=== PATIENT | female | born 1985 | race Caucasian/White ===

== ENCOUNTER 2024-06-22 10:42 | Outpatient (CLI) | payer OTHER, SELFPAY | END 2024-06-22 10:43 | disposition home or self-care (01) | LOC: NFLDREF 06-27 02:50 | PROVIDERS: Visit Provider Nurse Practitioner Family | DX: I10 Essential (primary) hypertension (principal); Z13.220 Encounter for screening for lipoid disorders | CPT/HCPCS: 80053; 80061 ==

== ENCOUNTER 2024-12-05 00:42 | Emergency (ER) | payer OTHER, SELFPAY ==
--- OUTSIDE RECORDS SUMMARY | 2024-12-05 00:46 | XMS_ITS | Clinical Summary ---
Author Organization [facility] Address [address] [place] [address] Care Team Providers Care Supervisor [employer] Name Role Phone Zeina Saldivar MD Primary Care Provider [phone] Allergies No known active allergies Medications No known medications Active Problems No known active problems Resolved Problems Problem Noted Date Diagnosed Date Resolved Date Threatened , antepartum 06/22/2012 01/25/2019 Supervision of other normal 05/24/2012 01/25/2019 Overview (06/22/2012): Previous - planning repeat as of 04/2012 Pediatrics Janna Proteinuria on initial Urinalysis Flu Shot: Decline Chorioamnionitis 09/26/2010 05/24/2012 Malpresentation of fetus 09/26/2010 Non-reassuring heart t ones complicating , antepartum 09/26/2010 05/24/2012 section 09/26/2010 05/24/2012 care and examinat ion of lactating mother 09/26/2010 05/24/2012 Carrier of group B Streptococcus 08/30/2010 05/24/2012 Supervision of normal first 04/02/2010 05/24/2012 BV (bacterial vaginosis) 04/02/2010 CHONDROMALACIA, PATELLA 09/02/200004/26 Immunizations Immunization Administration Dates Next Due Tdap 01/26/2019 Family History Medical History Relation Name Comments No Known Problems Brother Allergies Father Arthritis Father Asthma Father Thyroid Disease Maternal Grandmother Hypertension Mother Arthritis Paternal Grandmother Cancer Paternal Grandmother Diabetes Paternal Grandmother Rheum arthritis Sister Relation Name Status Comments Brother Alive Father ra. 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 Start Date Job End Date [employer] 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 Not on file Not on file Not on file Obstetrics History Para Term AB IAB SAB Ectopic Multiple Livin g Live Births 2 1 1 0 1 0 1 0 0 1 1 Date Outcome GA Total Labor Labor/2nd/3rd Weight Sex Type Anes PTL Nicole A1 A5 Name Clin 2010 Term 40w 1d 22h 00m/ 3.32 kg (7 lb 5 oz) M C-Sect ion Epidur al N Livin g Tawanda Ally i/Fis her Delivery Location:[facility] Comments:got t 4 cm 2 SAB SPONTA NEOUS Last Filed Vital Signs Vital Sign Reading Time Taken Comments Blood Pressure 128/88 01/26/2019 8:59 AM CDT Pulse 78 01/26/2019 8:59 AM CDT Temperature 37 C (98.6 F) 11/06/2010 11:58 AM CDT Respiratory Rate 18 11/06/2010 11:58 AM CDT Oxygen Saturation 100% 09/29/2010 7:51 AM CDT Inhaled Oxygen Concentration - - Weight 100.7 kg (222 lb) 01/26/2019 8:59 AM CDT Height 169 cm (5' 6.54) 01/26/2019 8:59 AM CDT Body Mass Index 35.26 01/26/2019 8:59 AM CDT Plan of Treatment Health Maintenance Due Date Last Done Comments Hepatitis C screening for ag e 18-79 2004 Hepatitis B series for 19+ ( 1 of 3 - 19+ 3-dose series) 2005 BMI (ht and wt on same day) for age 18+ 01/27/2020 01/26/2019 Depression screening for age 12+ 01/27/2020 01/26/2019 COVID-19 vaccine series (1 - 2024-25 season) 2024 Pap test for age 21-65 01/27/2024 9, 01/26/2019, 04/02/2010 Influenza Vaccine (#1) 2025 Tetanus booster 01/26/2029 01/26/2019 HIV for age 15-65 Completed 05/24/2012, 04/02/2010 Pneumococcal series for age 6-49 Aged Out No longer eligible b ased on patient's age to complete this topic Procedures Procedure Name Priority Date/Time Associated Diagnosis Comments DIRECTOR CORPORATE SALES THIN PREP PAP SCREEN IMAGED Routine 01/26/2019 9:41 AM CDT Pap smear for cervical cancer screening ANTI HIV 1/2 Routine 05/24/2012 11:32 AM PROCESS CONTROL TECH Supervision of other normal (HC) from Last 3 Months or Most Recently Relevant to Health Maintenance Results * DIRECTOR CORPORATE SALES THIN PREP PAP SCREEN IMAGED (01/26/2019 9:41 AM CDT) Case Report Gynecologic Cytology Report Case: [id number] Authorizing Provider: Araceli Herrera MD Collected: 01/26/2019 0941 Ordering Location: [facility] Received: 01/26/2019 0941 Clinic First Screen: Felicia Treviño Specimen: DIRECTOR CORPORATE SALES ThinPrep Vial Screening, Cervical 02/03/2019 8:57 AM CDT [email or web address] ENTRAL LABORATORY INTERPRETATION/ RESULT NEGATIVE FOR INTRAEPITHELIAL LESION OR MALIGNANCY (NIL) (none) 02/03/2019 8:57 AM CDT [facility] at 0857 CDT ORGANISM(S) Shift in carmen suggestive of bacterial vaginosis 02/03/2019 8:57 AM CDT [employer] [facility] ENTRAL LABORATORY SPECIMEN ADEQUACY Satisfactory for evaluation Endocervical component present 02/03/2019 8:57 AM CDT [employer] HPV REQUEST HPV and PAP 02/03/2019 8:57 AM CDT [employer] Date of LMP Hormonally Suppressed 02/03/2019 8:57 AM CDT [employer] [facility] Last Pap Date 201202/03/2019 8:57 AM CDT [facility] Last Pap Result NIL 8:57 AM CDT [facility] Abnormal Pap or [place] Bx in last 5 years No 02/03/2019 8:57 AM CDT [facility] Menstrual Status Hormonally Suppressed 02/03/2019 8:57 AM CDT [facility] [place] Bx Done Today No 02/03/2019 8:57 AM CDT [facility] Additional Information None given 02/03/2019 8:57 AM CDT [facility] Automated Review Successful 02/03/2019 8:57 AM CDT [facility] Comment:Specimen processed s uccessfully by automated blind hooker device, ThinPrep Imaging System, [employer] ANCILLARY TESTING DIRECTOR CORPORATE SALES HPV Ordered, Please see separate report 02/03/2019 8:57 AM CDT [facility] Note The pap test is a screening technique, not a diagnostic procedure. It is used primarily to screen for squamous cancers and precursor lesions. Published studies have shown that it is subject to both false negative and false positive results. The pap test should not be used as the sole means to diagnose or exclude pre-malignant and malignant lesions. Cytology is screened and interpreted at [facility] - [address], [place] [address] and [facility] - [address]; [place] [address] and [facility] - [address]; [place] [address] and [facility] [address]; [place] [address] 02/03/2019 8:57 AM CDT [facility] Other (Cervical) Non-Blood / Unknown 01/26/2019 9:41 AM CDT 01/26/2019 9:41 AM CDT us Araceli Herrera MD PATHOLOGY/CYTOLOGY Yovana berrios Result [facility] [address] [place] [address], * ANTI HIV 1/2 (05/24/2012 11:32 AM PROCESS CONTROL TECH) ANTI HIV 1/2 Non-reacti ve [facility] Blood specimen (specimen) BLOOD SPECIMEN / Unknown 05/24/2012 11:32 AM PROCESS CONTROL TECH 05/24/2012 11:22 AM PROCESS CONTROL TECH us Zeina Saldivar MD SEND OUTS Final Resu lt [facility] [place]NAL ZIP [address] [place] [address] from Last 3 Months or Most Recently Relevant to Health Maintenance Advance Directives * Full Code (Latest Code Status on File) Date Activated Date Inactivated Comments 09/26/2010 11:31 PM 09/29/2010 5:12 PM * Full Code Date Activated Date Inactivated Comments 09/26/2010 10:19 PM 09/26/2010 11:31 PM * Full Code Date Activated Date Inactivated Comments 09/26/2010 1:07 AM 09/26/2010 10:19 PM * Full Code Date Activated Date Inactivated Comments 09/26/2010 12:36 AM 09/26/2010 1:07 AM * Full Code Date Activated Date Inactivated Comments 09/03/2010 11:47 AM 09/03/2010 5:33 PM Care Teams 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
--- OUTSIDE RECORDS SUMMARY | 2024-12-05 00:46 | XMS_ITS | Clinical Summary ---
Author Organization [facility] Address [address] [place] [address] Care Team Providers Care Freelance Court Reporter Name Role Phone Found, No Pcp MD Primary Care Provider Unavailab le Source Comments You are receiving this document as you are listed as the primary care provider,follow-up provider, or the patient has been referred to you for consultation.This is in compliance with the Medicare andMedicaid EHR Incentive Program,which states Providers who transition their patient to another setting of careor provider of care or refers their patient to another provider of care shouldprovide summary care record for each transition of care or referral. [facility] [place] Medications No known medications Social History Tobacco Use Types Packs/Day Years Used Date Smoking Tobacco: Never Smokeless Tobacco: Never Comments No Sex and Gender Information Value Date Recorded Sex Assigned at Not on file Legal Sex Female 8:56 AM OVERHEAD DOOR TECHNICIAN Gender Identity Not on file Sexual Orientation Not on file Last Filed Vital Signs Vital Sign Reading Time Taken Comments Blood Pressure 148/108 07/12/2018 9:23 AM OVERHEAD DOOR TECHNICIAN Pulse 70 07/12/2018 9:23 AM OVERHEAD DOOR TECHNICIAN Temperature 36.8 C (98.2 F) 07/12/2018 9:12 AM OVERHEAD DOOR TECHNICIAN Respiratory Rate - - Oxygen Saturation 99% 07/12/2018 9:12 AM OVERHEAD DOOR TECHNICIAN Inhaled Oxygen Concentration - - Weight 95.7 kg (211 lb) 07/12/2018 9:12 AM OVERHEAD DOOR TECHNICIAN Height - - Body Mass Index - - Plan of Treatment Health Maintenance Due Date Last Done Comments Cervical Cancer Screening Due 1986 Hep C Screening (Preventive Services) 1986 HIV Screening (Preventive Services) 2002 Adult Preventive Visit 2004 DTaP/Tdap/Td Vaccine (1 - Tdap) 2005 HepB Vaccine (1) 2005 COVID-19 Vaccine (1 - 2023-2 5 season) 2024 Influenza Vaccine (#1) 2025 Zoster/Shingles Vaccine (1 of 2) 2036 HPV Vaccine Aged Out No longer eligi ble based on patient's age to complete this topic HepA Vaccine Aged Out No longer eligi ble based on patient's age to complete this topic Hib Vaccine Aged Out No longer eligi ble based on patient's age to complete this topic IPV (Polio) Vaccine Aged Out No longe r eligible based on patient's age to complete this topic MCV4 Vaccine Aged Out No longer eligi ble based on patient's age to complete this topic Meningococcal B Vaccine Aged Out No l onger eligible based on patient's age to complete this topic Pneumococcal Vaccine Aged Out No long er eligible based on patient's age to complete this topic Insurance [employer] Care Teams Freelance Court Reporter Relationship Specialty Start Date End Date Found, No PcpMD [address] [facility] [place] [address] PCP - General 07/12/18
[2024-12-05 00:48] VITALS: BP 227/117; PULSE 115; RESP 20; TEMP 36.7; O2SAT 94; BMI 35.2
[2024-12-05 00:56] VITALS: BP 198/120; PULSE 88
--- NOTE | 2024-12-05 01:05 | CRLHL7_ITS ---
For Patients: As a result of the Cures Act, medical imaging exams and procedure reports are released immediately into your electronic medical record. You may view this report before your referring provider. If you have questions, please contact your health care provider. Indication: Chest pain, cough Technique: Two views of the chest Comparison: None Findings/Impression: Right basilar haziness, could represent a smaller early consolidation. Mild prominence of the cardiomediastinal silhouette. Dictated by Nelson Roberts MD @ 12/05/2024 1:24:02 AM (Electronically Signed)
--- NOTE | 2024-12-05 01:12 | ED.GENADULT ---
HPI - General Adult General Chief complaint: Shortness of Breath/Dyspnea Stated complaint: shortness of breath Time Seen by Provider: 12/05/24 00:57 Source: patient Mode of arrival: ambulatory Limitations: no limitations History of Present Illness HPI narrative: 31-year-old female presents to the emergency department for evaluation of shortness of breath accompanied by cough of pink sputum for the past 90 minutes. No trauma or injury. Happen during romantic relations. Was feeling anxious around 9:00 p.m., tried taking 5 mg of oxycodone which she had left over from childbirth 5 years ago with no significant improvement in symptoms. No fevers, no prior history of similar symptoms. No history of DVT or PE but does have a family history of blood clots in a sister, uncertain of etiology. No prior history of heart disease, prior cardiac workup, echo, angiogram or stress test. No symptoms that would have warrant to doing so in the past. She reports that she does have a diagnosis of hypertension. Was started on medication a few months ago, specifically lisinopril. She reports that she took the medication until she ran out, has not made her follow-up appointment to go back. Headache URI at the time of her follow-up been canceled but never bothered to reschedule. Does not sound as though she had any major side effects or problems on the lisinopril. Did not try any other interventions prior to coming to ED. No history of chronic lung disease, asthma. No recent illness or travel exposures. No fever. Past medical history notable for hypertension, otherwise uncomplicated childbirth. Nonsmoker. ROS is notable for the respiratory symptoms as above and mild headache yesterday, resolved otherwise benign times 12 systems. Related Data Previous Rx's ?Medication ?Instructions ?Recorded lisinopril 10 mg tablet 10 mg PO QDAY #30 tabs 07/19/24 albuterol sulfate 90 mcg/actuation 2 puff inhalation 6XD PRN 12/05/24 aerosol inhaler shortness of breath or wheezing #8.5 grams azithromycin 250 mg tablet See Rx Instructions PO .COMPLEX #6 12/05/24 tabs cefuroxime axetil 500 mg tablet 500 mg PO BID #14 tabs 12/05/24 lisinopril 10 mg tablet 10 mg PO DAILY #90 tabs 12/05/24 prednisone 20 mg tablet 20 mg PO DAILY #3 tabs 12/05/24 Allergies Allergy/AdvReac Type Severity Reaction Status Date / Time No Known Drug Allergies Allergy Verified 12/05/24 00:52 PFSH PFS Medical History Hypertension ?I10 - Essential (primary) hypertension (ICD-10) Surgical History H/O tubal ligation ?Z98.51 - Tubal ligation status (ICD-10) History of section ?Z98.891 - History of uterine scar from previous surgery (ICD-10) Family History Mother Osteoporosis High blood pressure Alcohol dependence Maternal Grandmother Diabetes Uncle High blood pressure Social History Narrative: with 2 children ages 4 and 13. 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 High school diploma. Limited exercise. Rare alcohol. No drug use. What is your current living situation?: I presently have a place to live Problems where you live: no known problems In the past 12 months, utilities in danger of being shut off: no In past 12 months, lack of transportation kept you from medical appts, meetings, work, or getting things needed for daily living: no In the past 12 mos, have been you worried that your food would run out before you had money to buy more?: never true In the past 12 mos, the food you bought just didn't last and you didn't have money to buy more?: never true Smoking Status: Never smoker Second hand tobacco smoke exposure: No How often do you have a drink containing alcohol: never AUDIT-C Alcohol total score: 0 Non-prescribed substance use: denies use How often does anyone, including family, friends and others, physically hurt you: never How often does anyone, including family, friends and others, insult or talk down to you: never How often does anyone, including family, friends and others, threaten you with harm: never How often does anyone, including family, friends and others, scream or curse at you: never Exam Const: Vital Signs, click to edit/add: Vital Signs - 24 hr 12/05/24 00:48 12/05/24 00:56 12/05/24 01:28 Temperature 98.1 F 98.1 F Pulse Rate [Pulse Oximeter] 115 H 88 85 Respiratory Rate 20 20 Blood Pressure [Le ft Upper Arm] 227/117 H 198/120 H 191/112 H Pulse Oximetry 94 97 Oxygen Delivery Me thod Room Air Room Air Documenting provider has reviewed patient's vital signs: yes Common normals: no apparent distress and alert General appearance: cooperative and well kempt HENMT: Common normals: normocephalic, moist oral mucous membranes and oropharynx normal Head and scalp: normocephalic Face and sinus: normal facial exam Mouth: oral and palatal mucosa normal Throat: posterior oropharynx normal Eye: Common normals: conjunctivae normal Conjunctiva: conjunctiva(e) normal Other: Mild exophthalmos noted Neck & C-Spine: Common normals: full ROM and no lymphadenopathy Chest: Common normals: inspection of chest normal Resp: Common normals: normal respiratory effort and no use of accessory muscles Effort & inspection: able to speak in complete sentences Other: Mild prolongation of expiration with course breath sounds in upper lobes, decreased breath sounds in lower lobes. Right slightly greater than left but present bilaterally. Cardio: Common normals: regular rate, regular rhythm, S1 normal heart sound and S2 normal heart sound Rate: regular rate Rhythm: regular rhythm Heart sounds: S1 normal and S2 normal GI: Common normals: Normal to inspection, nondistended, normoactive bowel sounds present, soft to palpation, non-tender, no hepatosplenomegaly and no masses Palpation: soft and no hepatosplenomegaly Extremity: Common normals: normal to inspection, normal capillary refill, no calf tenderness and no pedal edema Neuro: Common normals: CN's II-XII intact bilaterally, moves all extremities and gait normal Sensorium/orientation: alert Psych: Appearance: well kempt Attitude: engaged Activity/motor behavior: appropriate eye contact Thought content: normal thought content Attention/concentration: attention grossly intact Memory/cognition: memory grossly intact Insight: insight good Judgement: judgment good Skin: Common normals: no rashes or lesions noted General skin exam: no rashes or lesions noted Course Course ED Course: 31-year-old female with shortness of breath of uncertain etiology. Differential diagnosis including pulmonary embolism, heart failure, asthma, upper respiratory infection, pneumonia, pulmonary hypertension, cardiac complications, amongst many others. Will obtain EKG, placed on [place] mail carrier. Initial tachycardia noted, resolved with 10 minutes of rest. Chest x-ray and typical cardiac labs ordered. Await findings. Reevaluation(s) Time of Reevaluation #1: 02:21 Reevaluation #1: Shortness breath and wheezing as well as breath sounds quite a bit improved after DuoNeb. Counseled patient on findings of the x-ray prior to DuoNeb. Does seem consistent with a mild pneumonia. Blood work is reassuring. D-dimer is normal. Troponins and EKG are reassuring as well. I do think this clinically fits with symptoms. Will give a dose of 20 mg prednisone as well as start cefuroxime and azithromycin for the pneumonia. Albuterol inhaler given, discussed indications for use. Unfortunately cough for about a month after pneumonia can be common but fever, severe shortness of breath and most symptoms should be resolved within about 5 days. If not would recommend re-evaluation. Prescription sent to pharmacy. We also discussed her elevated blood pressure. I want her back on the lisinopril but I am not certain of her dose as we do not have readings while she was on the low-dose trial of lisinopril. I have given her a 1 month refill in the interim and have advised her to follow up with her primary care provider in 3-4 weeks for recheck and re-evaluation and have let her know that her dose will likely need to be increased at that time, but blood work is very reassuring today. Thyroid analyzer is down, patient will need to follow up with primary care provider to go over the results of those at her blood pressure follow-up. Vital Signs Vital signs: Initial Vital Signs Temperature 98.1 F 12/05/24 00:48 Temperature Source Temporal Artery Scan 12/05/24 00:48 Pulse Rate 115 H 12/05/24 00:48 Respiratory Rate 20 12/05/24 00:48 Respiratory Effort Normal, Spontaneous, Non-Labored 12/05/24 00:48 Respiratory Depth Normal 12/05/24 00:48 Respiratory Pattern Normal 12/05/24 00:48 Blood Pressure 227/117 H 12/05/24 00:48 Blood Pressure Mean 153 H 12/05/24 00:48 Blood Pressure Position Sitting 12/05/24 00:48 Pulse Oximetry 94 12/05/24 00:48 Oxygen Delivery Method Room Air 12/05/24 00:48 Vital Signs Temperature 98.1 F 12/05/24 00:48 Pulse Rate 115 H 12/05/24 00:48 Respiratory Rate 20 12/05/24 00:48 Blood Pressure 227/117 H 12/05/24 00:48 Pulse Oximetry 94 12/05/24 00:48 Oxygen Delivery Method Room Air 12/05/24 00:48 Temperature 98.1 F 12/05/24 01:28 Pulse Rate 85 12/05/24 01:28 Respiratory Rate 20 12/05/24 01:28 Blood Pressure 191/112 H 12/05/24 01:28 Pulse Oximetry 97 12/05/24 01:28 Oxygen Delivery Method Room Air 12/05/24 01:28 Medications Administered Medications: Discontinued Medications Generic Name Dose Route Start Last Admin Trade Name Freq PRN Reason Stop Dose Admin Albuterol/Ipratropium 1 neb 12/05/24 01:59 12/05/24 02:11 Iprat-Albut 0.5-2.5 Mg/3 Ml Neb IH 12/05/24 02:00 1 neb ONCE ONE Administration Azithromycin 500 mg 12/05/24 01:59 12/05/24 02:13 Azithromycin 250 Mg Tablet PO 12/05/24 02:00 500 mg ONCE ONE Administration Cefuroxime Axetil 500 mg 12/05/24 02:08 12/05/24 02:22 Cefuroxime Axetil 500 Mg Tablet PO 12/05/24 02:09 500 mg ONCE ONE Administration Prednisone 20 mg 12/05/24 02:00 12/05/24 02:13 Prednisone 20 Mg Tablet PO 12/05/24 02:01 20 mg ONCE ONE Administration Medical Decision Making Lab Data Lab results reviewed: Yes I reviewed the patient's lab results Lab results narrative: Labs reassuring. TSH analyzer unavailable, results will come back after my shift, patient informed she will follow up with primary care provider to review those Labs: Lab Results 12/05/24 12/05/24 Range/Units 01:05 01:25 WBC 7.51 (4.50-11.00) K/uL RBC 4.87 (4.00-5.20) m/uL Hgb 13.7 (12.0-16.0) gm/dL Hct 41.3 (33.0-51.0) % MCV 85 (80-100) fL MCH 28 (26-34) pg MCHC 33 (32-36) gm/dL RDW Coeff of [place] 12.9 (11.5-15.5) % Plt Count 248 (140-440) K/uL Neut % (Auto) 72.8 H (42.0-72.0) % Lymph % (Auto) 20.1 (20-44) % [place] % (Auto) 5.3 (0.0-11.0) % Eos % (Auto) 1.3 (0.0-7.0) % Baso % (Auto) 0.4 (0.0-3.0) % Neut # (Auto) 5.50 (1.7-7.0) K/uL Lymph # (Auto) 1.51 (0.90-2.90) K/uL [place] # (Auto) 0.40 (0.00-0.90) K/UL Eos # (Auto) 0.10 (0.00-0.50) K/uL Baso # (Auto) 0.03 (0.00-0.30) K/uL Abs Immat Gran (auto) 0.01 (0.00-0.30) K/uL Imm/Tot Granulo (auto) 0.1 % D-Dimer Quant (PE/DVT) 0.37 (0.00-0.50) ug/ml Sodium 140 (135-149) mmol/L Potassium 3.9 (3.6-5.1) mmol/L Chloride 104 (96-114) mmol/L Carbon Dioxide 28 (20-32) mmol/L Anion Gap 8 (7-15) mEq/L BUN 13 (5-24) mg/dL Creatinine 0.8 (0.5-1.5) mg/dL Estimated Creat Clear 92.72 Estimated GFR 97 ml/min Glucose 107 (60-115) mg/dL Calcium 9.4 (8.4-10.6) mg/dL Total Bilirubin 0.4 (0.1-1.5) mg/dL AST 30 (12-35) U/L ALT 38 H (4-35) U/L Alkaline Phosphatase 81 (40-150) U/L NT-Pro-B Natriuret Pep 95 (See Note) pg/mL Total Protein 7.3 (6.0-8.3) g/dL Albumin 4.3 (3.3-5.0) g/dL Urine Color Yellow (Yellow) Urine Appearance Clear (Clear) Urine pH 6.0 (5.0-8.5) Ur Specific [place] 1.010 (1.000-1.030) Urine Protein Negative (Negative) Urine Glucose (UA) Negative (Negative) Urine Ketones Negative (Negative) Urine Blood Negative (Negative) Urine Nitrite Negative (Negative) Urine Bilirubin Negative (Negative) Urine Urobilinogen 0.2 (0.2-1.0) Ur Leukocyte Esterase Negative (Negative) Urine HCG, Qual Negative (Negative) SARS-CoV-2 (PCR) Negative SARS-CoV-2 (Negative) Influenza Type A (PCR) Negative PCR FLU A (Negative) Influenza Type B (PCR) Negative PCR FLU B (Negative) RSV (PCR) Negative PCR RSV (Negative) POC Troponin I 0.00 L (0.01-0.04) ng/ml Imaging Data Chest x-ray: Attestation: I have reviewed the pertinent imaging results. My impression: No significant cardiomegaly or effusions. Right-sided infiltrate in mid and lower lung galicia noted. Radiologist's impression: Comparison: None Findings/Impression: Right basilar haziness, could represent a smaller early consolidation. Mild prominence of the cardiomediastinal silhouette. Dictated by Nelson Roberts MD @ 12/05/2024 1:24:02 AM (Electronically Signed) ECG Data Attestation: I personally reviewed and interpreted this ECG as follows: Prior ECG tracings: not available for review Interpretation: Sinus rhythm with a rate of 81. No significant ST or T-wave abnormalities. Normal R-wave progression. Normal intervals and axis. Normal EKG. Discharge Plan Discharge Clinical Impression: Community acquired pneumonia Patient Disposition: Home w/ Parent or Adult Instructions: Community Acquired Pneumonia (DC) Additional Instructions: As we discussed, your x-ray and exam are consistent with pneumonia. Her blood work does look okay. There were no signs of blood clot, heart attack, heart failure, dangerous infection, severe inflammation or other abnormality. We have started you on a combination of antibiotics to treat the pneumonia as well as anti-inflammatory medications to help with the inflammation which will help you feel better faster. There are combination of 2 antibiotics that will kill both of the typical types of bacteria that cause these pneumonias this time of year. 1 of them is taken twice daily, cefuroxime. You have already taken your morning dose today. You will continue taking this twice daily for 7 days. Your next dose will be today, which is Thursday in the late afternoon or early evening. The azithromycin is the 2nd antibiotic, you have already taken this for today, your next dose will be Thursday morning. You will take 2 pills on Thursday then 1 pill daily until the antibiotics are completed. I have prescribed prednisone for the inflammation. You may use this up to twice daily for significant chest tightness and shortness of breath. Try to avoid taking it too close to bedtime as it may worsen insomnia. For most people, symptoms get markedly better after about 48 hours but I have given you enough tablets to take twice daily for a couple of days if needed. Plan to take another dose Thursday unless you needed sooner this afternoon. The antibiotic should start kicking in within about 24-48 hours. It is common to cough for about 6 weeks after an episode of pneumonia. I have given you albuterol for sudden shortness of breath episodes and coughing fits. There is a refill if needed as well. I do have lingering concerns about your elevated blood pressure and would like to restart your lisinopril. And 90 day supply has been sent to your pharmacy. Please make a follow-up appointment with her primary care physician in about 3-4 weeks to recheck your blood pressure and bring a list of home readings for comparison, ideally start those 1 week from now for recording. Your dose will likely need to be adjusted at that time as 10 mg is a very small dose. Are thyroid analyzer machine is currently down, the results will be available later today, after my shift is over. He will need to follow up with her primary care provider to review the results of those. This is a standard part of the elevated blood pressure workup that looks like it had not been done at your last visit. You should be re-evaluated sooner if you have persistent fever, severe shortness of breath or significant worsening that is not improving after a few days on the antibiotics. Prescriptions: New cefuroxime axetil 500 mg tablet 500 mg PO BID Qty: 14 0RF azithromycin 250 mg tablet See Rx Instructions .ROUTE .COMPLEX Qty: 6 0RF Rx Instructions: For 250 mg dose pack: take 500 mg today (day 1), then 250 mg for 4 days (days 2-5) prednisone 20 mg tablet 20 mg PO DAILY Qty: 3 0RF lisinopril 10 mg tablet 10 mg PO DAILY Qty: 90 0RF albuterol sulfate 90 mcg/actuation HFA aerosol inhaler 2 puff inhalation 6XD PRN (Reason: shortness of breath or wheezing) Qty: 8.5 1RF No Action lisinopril 10 mg tablet 10 mg PO QDAY Qty: 30 0RF Follow Up/Referrals: Kellie Dennis CABLE WAY OPERATOR [Primary Care Provider, Family Practice] Stand Alone Forms: MyHealth Info Instructions
[2024-12-05 01:28] VITALS: BP 191/112; PULSE 85; RESP 20; TEMP 36.7; O2SAT 97
[2024-12-05 01:31] LABS: Appearance Urine Clear (Clear)
[2024-12-05 01:34] LABS: Ur HCG Qualitative* Negative (Negative)
[2024-12-05 01:36] LABS: Hematocrit 41.3 % (33.0-51.0); Hemoglobin* 13.7 gm/dL (12.0-16.0); Immature Granulocytes Abs Auto 0.01 K/uL (0.00-0.30); Immature Granulocytes Pct Auto 0.1 %; Lymphocytes Absolute Auto 1.51 K/uL (0.90-2.90); Mean Corpuscular HGB Conc 33 gm/dL (32-36); Mean Corpuscular Hemoglobin 28 pg (26-34); Mean Corpuscular Volume 85 fL (80-100); RDW Coefficient of Variation % 12.9 % (11.5-15.5); Red Blood Count 4.87 m/uL (4.00-5.20); White Blood Count* 7.51 K/uL (4.50-11.00)
[2024-12-05 01:38] LABS: Slide Review Reflex No
[2024-12-05 01:39] LABS: Troponin, Point-of-Care* 0.00 ng/ml (0.01-0.04)
[2024-12-05 01:43] LABS: Albumin* 4.3 g/dL (3.3-5.0); Chloride* 104 mmol/L (96-114); Potassium* 3.9 mmol/L (3.6-5.1); Sodium* 140 mmol/L (135-149)
[2024-12-05 01:46] LABS: Alanine Aminotransferase* 38 U/L (4-35); Alkaline Phosphatase* 81 U/L (40-150); Anion Gap 8 mEq/L (7-15); Aspartate Amino Transferase* 30 U/L (12-35); Bilirubin Total* 0.4 mg/dL (0.1-1.5); Blood Urea Nitrogen* 13 mg/dL (5-24); Calcium* 9.4 mg/dL (8.4-10.6); Carbon Dioxide* 28 mmol/L (20-32); Creatinine* 0.8 mg/dL (0.5-1.5); Est. Creatinine Clearance* 92.72; Estimated Glomerular Filt Rate 97 ml/min; Glucose* 107 mg/dL (60-115); Total Protein* 7.3 g/dL (6.0-8.3)
[2024-12-05 01:48] LABS: D Dimer Quantitative* 0.37 ug/ml (0.00-0.50)
[2024-12-05 01:49] LABS: NT Pro B Type NatriureticPept* 95 pg/mL (See Note)
[2024-12-05 02:08] LABS: PCR FLU A Negative PCR FLU A (Negative); PCR FLU B Negative PCR FLU B (Negative); PCR RSV Negative PCR RSV (Negative); SARS PCR* Negative SARS-CoV-2 (Negative)
[2024-12-05] MEDS: IPRAT-ALBUT 0.5-2.5 MG/3 ML NEB 1 NEB IH (02:11)
[2024-12-05] MEDS: AZITHROMYCIN 250 MG TABLET 500 MG PO (02:13)
[2024-12-05 02:40] VITALS: BP 175/89; PULSE 89; RESP 20; TEMP 36.7; O2SAT 97
[2024-12-05 02:50] VITALS: BP 175/89; PULSE 89; RESP 20; TEMP 36.7
[2024-12-05 03:17] LABS: TSH With Reflex to FT4* 1.890 uIU/mL (0.270-4.200)
== END 2024-12-05 02:50 | disposition home or self-care (01) ==
PROVIDERS: Emergency Provider Family Medicine; PCP Nurse Practitioner Family
DX: J18.9 Pneumonia, unspecified organism (principal); I10 Essential (primary) hypertension; Z79.899 Other long term (current) drug therapy
CPT/HCPCS: 36415; 71046; 80053; 81003; 81025; 83880; 84443; 84484; 85025; 85379; 87631; 93005; 94640; 96374; 99284; 99285; A9270; J7512